=== PATIENT | female | born 1955 | race Caucasian/White ===

== ENCOUNTER 2022-08-21 16:20 | Outpatient (CLI) | payer BC | END 2022-08-21 16:21 | disposition home or self-care (01) | LOC: MADLAB 16:20 → MADRAD 16:21 | PROVIDERS: ATTEND Nurse Practitioner Family | DX: M79.645 Pain in left finger(s) (principal); M18.12 Unilateral primary osteoarthritis of first carpometacarpal joint, left hand ==